=== PATIENT | female | born 1955 | race Hispanic/Latino ===

== ENCOUNTER 2017-12-20 08:17 | Observation (INO) | payer BC, OTHER ==
[~2017-12-20] VITALS: Ht 154.9 cm; Wt 63.0 kg
[2017-12-20] MEDS ORDERED: KETOROLAC TROMETHAMINE 30MG/ML ONE (08:42)
[2017-12-20] MEDS ORDERED: SODIUM CHLORIDE 0.9% 1000ML 1,000 ML IV ONE ×2 (08:42→15:42)
[2017-12-20] MEDS ORDERED: ONDANSETRON HCL MDV 20ML 2 MG/ML VIAL ONE ×3 (08:42→18:10)
[2017-12-20 08:47] LABS: BASOPHILS % (AUTO) 0.1 % (0.0-5.0); HEMATOCRIT 40.2 % (36-48); LYMPHOCYTES % (AUTO) 4.6 % (21.0-51.0); MEAN CORPUSCULAR HEMOGLOBIN 31.7 pg (27.0-33.0); MEAN CORPUSCULAR HGB CONC 35.5 g/dL (32.0-36.0); MEAN CORPUSCULAR VOLUME 89.4 fL (79-99); MONOCYTES % (AUTO) 2.5 % (3.0-13.0); NEUTROPHILS % (AUTO) 92.8 % (40.0-77.0); PLATELET COUNT (AUTO) 304 K/uL (130-400); RED CELL DISTRIBUTION WIDTH 13.3 % (11.0-15.5); WHITE BLOOD COUNT (AUTO) 12.8 K/uL (4.8-10.8)
[2017-12-20 08:54] LABS: APPEARANCE,URINE Turbid (CLEAR); BILIRUBIN,URINE Negative (NEGATIVE); COLOR,URINE Yellow (YELLOW); GLUCOSE, URINE (UA) Negative (NEGATIVE); KETONES,URINE Negative (NEGATIVE); LEUKOCYTE ESTERASE ,URINE Negative (NEGATIVE); NITRATE,URINE Negative (NEGATIVE); OCCULT BLOOD,URINE Small (NEGATIVE); PH,URINE >=9.0 (5.0-8.0); PROTEIN,URINE Negative (NEGATIVE); UROBILINOGEN,URINE 0.2 mg/dL (0.2-1.0)
[2017-12-20 09:01] LABS: AMPHET/METH SCREEN,URINE NEGATIVE (NEGATIVE); BARBITURATE SCREEN, URINE NEGATIVE (NEGATIVE); BENZODIAZEPINES SCREEN,URINE NEGATIVE (NEGATIVE); CANNABINOID SCREEN,URINE NEGATIVE (NEGATIVE); COCAINE SCREEN,URINE NEGATIVE (NEGATIVE); OPIATE SCREEN,URINE NEGATIVE (NEGATIVE); PHENCYCLIDINE SCREEN,URINE NEGATIVE (NEGATIVE)
[2017-12-20 09:48] LABS: AMORPHOUS SEDIMENT,UR Moderate /LPF (None Seen); BACTERIA,URINE Rare /HPF (None Seen); RBC,URINE 0-1 /HPF (0-1); SQUAMOUS EPITHELIAL CELL,UR Few /HPF (0-2); WBC,URINE 0-1 /HPF (0-1)
[2017-12-20 09:57] LABS: BILIRUBIN,DIRECT 0.1 mg/dL (0.0-0.3); BILIRUBIN,TOTAL 0.5 mg/dL (0.2-1.0)
[2017-12-20 09:59] LABS: ALBUMIN 4.3 g/dL (3.5-5.0); CREATININE 0.8 mg/dL (0.5-1.5); TOTAL PROTEIN, SERUM 8.4 g/dL (6.0-8.3)
[2017-12-20 10:10] LABS: POTASSIUM 2.8 mmol/L (3.5-5.1)
[2017-12-20] MEDS ORDERED: POTASSIUM BICARB/CIT AC 25 MEQ TABLET.EFF ONE (13:19)
[2017-12-20] MEDS ORDERED: MAGNESIUM 2GM PREMIX 50ML 50 ML IV ONE (13:19)
[2017-12-20] MEDS ORDERED: ZOSYN 3.375GM+NS 50ML 50 ML IV ONE ×2 (13:19→22:55)
[2017-12-20] MEDS ORDERED: MORPHINE SULFATE 4 MG/1ML SYG ONE (13:31)
[2017-12-20] MEDS ORDERED: CLONIDINE HCL 0.1 MG TABLET PO PRN (16:45)
[2017-12-20] MEDS ORDERED: ACETAMINOPHEN 325 MG TAB PO PRN ×2 (16:45)
[2017-12-20 18:49] VITALS: BP 140/77
[2017-12-20] MEDS ORDERED: CALC-1038 PO (18:51)
[2017-12-20] MEDS ORDERED: CHOL100046 PO (18:51)
[2017-12-20] MEDS: ZOSYN 3.375GM+NS 50ML 50 ML IV SCH (21:00)
[2017-12-20] MEDS ORDERED: ACETAMINOPHEN 325 MG TAB ONE (22:12)
[2017-12-20 23:40] VITALS: BP 118/72
[2017-12-21] VITALS (31 sets, daily range): BP systolic 111–154; BP diastolic 65–90
[2017-12-21] MEDS: MEPERIDINE-PF 25 MG/ML SYG IV PRN ×2 (00:16→09:30)
[2017-12-21] MEDS: ONDANSETRON HCL MDV 20ML 2 MG/ML VIAL IVP PRN ×2 (00:16→08:25)
[2017-12-21] MEDS: SODIUM CHLORIDE 0.9% 1000ML 1,000 ML IV SCH ×2 (02:45→09:30)
[2017-12-21] MEDS: ZOSYN 3.375GM+NS 50ML 50 ML IV SCH ×3 (05:56→21:00)
[2017-12-21] MEDS: PANTOPRAZOLE SODIUM 40 MG TABLET.DR PO SCH (09:00)
[2017-12-21] MEDS ORDERED: LACTATED RINGERS 1000ML 1,000 ML IV ONE (13:01)
[2017-12-21] MEDS ORDERED: BUPIVACAINE/PF 0.5% 30ML VIAL ONE (13:20)
[2017-12-21] MEDS ORDERED: ROCURONIUM BROMIDE 10MG/1ML 5ML VL ONE (14:36)
[2017-12-21] MEDS ORDERED: PROPOFOL 10 MG/ML 20ML VIAL IV ONE ×2 (14:36→15:04)
[2017-12-21] MEDS ORDERED: LIDOCAINE PF 2% 5ML ABBOJECT ONE (14:36)
[2017-12-21] MEDS ORDERED: MIDAZOLAM HCL 1 MG/ML 2ML VIAL ONE (14:36)
[2017-12-21] MEDS ORDERED: FENTANYL CITRATE PF 50 MCG/1 ML 2ML VIAL ONE (14:37)
[2017-12-21] MEDS ORDERED: MORPHINE SULFATE 4 MG/1ML SYG IV PRN (16:00)
[2017-12-21] MEDS ORDERED: ONDANSETRON HCL MDV 20ML 2 MG/ML VIAL IVP PRN (16:00)
[2017-12-21] MEDS: LACTATED RINGERS 1000ML 1,000 ML IV SCH (17:08)
[2017-12-21 19:29] LABS: CREATININE 0.7 mg/dL (0.5-1.5)
[2017-12-21 19:36] LABS: POTASSIUM 2.9 mmol/L (3.5-5.1)
[2017-12-21] MEDS ORDERED: POTASSIUM CHLORIDE 20MEQ/100ML 100 ML IV PRN (20:00)
[2017-12-21] MEDS ORDERED: LIDOCAINE HCL-MPF 1% 2ML VIAL IVP PRN (20:00)
[2017-12-21] MEDS ORDERED: POTASSIUM CHLORIDE 10% ELIXIR 20 MEQ/15 ML UDCUP PO PRN (20:00)
[2017-12-21] MEDS: POTASSIUM CHLORIDE 20 MEQ ERTAB PO PRN ×2 (21:00→22:56)
[2017-12-22] MEDS: LACTATED RINGERS 1000ML 1,000 ML IV SCH ×2 (01:11→12:51)
[2017-12-22] MEDS: POTASSIUM CHLORIDE 20 MEQ ERTAB PO PRN ×2 (01:11→02:59)
[2017-12-22 04:13] VITALS: BP 137/87
[2017-12-22] MEDS: ZOSYN 3.375GM+NS 50ML 50 ML IV SCH ×2 (04:42→12:50)
[2017-12-22 05:06] LABS: BASOPHILS % (AUTO) 0.1 % (0.0-5.0); EOSINOPHILS % (AUTO) 0.5 % (0.0-8.0); HEMATOCRIT 34.6 % (36-48); MEAN CORPUSCULAR HEMOGLOBIN 32.5 pg (27.0-33.0); MEAN CORPUSCULAR HGB CONC 36.3 g/dL (32.0-36.0); MEAN CORPUSCULAR VOLUME 89.6 fL (79-99); NEUTROPHILS % (AUTO) 84.4 % (40.0-77.0); PLATELET COUNT (AUTO) 233 K/uL (130-400); RED BLOOD CELL COUNT(AUTO) 3.86 MIL/uL (4.00-5.50); RED CELL DISTRIBUTION WIDTH 13.7 % (11.0-15.5); WHITE BLOOD COUNT (AUTO) 12.3 K/uL (4.8-10.8)
[2017-12-22 05:21] LABS: BILIRUBIN,TOTAL 0.8 mg/dL (0.2-1.0); CREATININE 0.7 mg/dL (0.5-1.5); POTASSIUM 3.8 mmol/L (3.5-5.1); TOTAL PROTEIN, SERUM 6.6 g/dL (6.0-8.3)
[2017-12-22 07:35] VITALS: BP 119/88
[2017-12-22] MEDS ORDERED: VITAMIN D 1000 UNIT PO SCH (09:00)
[2017-12-22] MEDS ORDERED: CALCIUM CARBONATE 500 MG TABLET PO SCH (09:00)
[2017-12-22] MEDS: PANTOPRAZOLE SODIUM 40 MG TABLET.DR PO SCH (09:30)
[2017-12-22 11:45] VITALS: BP 135/83
[2017-12-22 15:55] VITALS: BP 122/79
== END 2017-12-22 16:00 | disposition home or self-care (01) ==
LOC: EDH 08:17 → EDHIP 13:40 → WSH 23:40
PROVIDERS: ADMIT Family Medicine; ATTEND Family Medicine
DX: K80.00 Calculus of gallbladder with acute cholecystitis without obstruction (principal); E87.6 Hypokalemia; K66.8 Other specified disorders of peritoneum; Z82.49 Family history of ischemic heart disease and other diseases of the circulatory system; Z96.698 Presence of other orthopedic joint implants
CPT/HCPCS: 36415 ×3; 47562; 74176; 76705; 80048 ×2; 80053; 80076; 80305; 81001; 82550; 83690; 84484; 85025 ×2; 87040 ×2; 93005; 96365; 96366 ×2; 96368; 96375 ×2; 96376 ×2; 99285; A4510; A4600; A4649 ×5; A4930 ×2; A6206; A6207; C1769 ×3; G0378 ×50; J1885; J2001; J2175 ×2; J2250; J2270 ×2; J2543 ×7; J2704 ×2; J3010; J3475; J3480; J3490 ×2; J7030 ×4; J7120